=== PATIENT | male | born 1985 | race Caucasian/White ===

== ENCOUNTER → 2022-05-01 | Outpatient (REF) | payer OTHER ==
[~2022-05-01] MED LIST: AUGM875T28 PO; IBUP-1022 PO; IBUP200C25 PO
[2022-05-01 18:59] LABS: GC DNA AMPLIFICATION NEGATIVE (NEGATIVE)
== END ==
LOC: M LAB REF 16:13
PROVIDERS: ATTEND Physician Assistant
DX: Z11.3 Encounter for screening for infections with a predominantly sexual mode of transmission (principal)

== ENCOUNTER → 2022-07-30 | Outpatient (CLI) | payer OTHER | LOC: M PLAIMG 07:27 | PROVIDERS: ATTEND Nurse Practitioner Primary Care | DX: R51.9 Headache, unspecified (principal) ==

== ENCOUNTER → 2023-01-08 | Outpatient (REF) | payer OTHER ==
[2023-01-08 13:47] LABS: APPEARANCE, URINE CLEAR (CLEAR); BACTERIA, URINE AUTO NEGATIVE (NEGATIVE); BILIRUBIN, URINE AUTO NEGATIVE (NEGATIVE); BLOOD, URINE BLOOD NEGATIVE (NEGATIVE); COLOR, URINE YELLOW (YELLOW); GLUCOSE, URINE (UA) AUTO NEGATIVE (NEGATIVE); KETONE, URINE AUTO NEGATIVE (NEGATIVE); LEUKOCYTE ESTERASE, URINE AUTO TRACE (NEGATIVE); MUCUS, URINE SMALL (NEGATIVE); NITRITE, URINE AUTO NEGATIVE (NEGATIVE); PROTEIN, URINE AUTO NEGATIVE (NEGATIVE); RBC, URINE AUTO 2 /HPF (0-3); SPECIFIC GRAVITY URINE AUTO 1.018 (1.002-1.035); SQUAMOUS EPITHELIAL CELL UR AU 0 /HPF (0-6); UROBILINOGEN, URINE AUTO 0.2 mg/dL (0.0-2.0); WBC, URINE AUTO 11 /HPF (0-3)
[2023-01-08 15:24] LABS: GC DNA AMPLIFICATION NEGATIVE (NEGATIVE)
== END ==
LOC: M LAB REF 12:14
PROVIDERS: ATTEND Physician Assistant Medical
DX: Z11.3 Encounter for screening for infections with a predominantly sexual mode of transmission (principal)